=== PATIENT | female | born 1980 | race Caucasian/White ===

== ENCOUNTER 2017-09-09 14:41 | Outpatient (CLI) | payer OTHER | END 2017-09-09 14:42 | disposition home or self-care (01) | LOC: DTY/OP 14:41 | PROVIDERS: ATTEND Family Medicine | DX: E66.3 Overweight (principal); Z68.29 Body mass index [BMI] 29.0-29.9, adult | CPT/HCPCS: 97802 ==

== ENCOUNTER 2018-01-22 10:49 | Outpatient (CLI) | payer OTHER | END 2018-01-22 10:50 | disposition home or self-care (01) | LOC: BICMAMMO 10:49 | PROVIDERS: ATTEND Obstetrics & Gynecology | DX: Z12.31 Encounter for screening mammogram for malignant neoplasm of breast (principal) | CPT/HCPCS: 77063; 77067 ==

== ENCOUNTER 2018-10-09 15:52 | Outpatient (CLI) | payer OTHER ==
[~2018-10-09 15:52] MED LIST: Iopamidol 370 76% 100 ML VIAL ONE; Iopamidol 370 76% 50 ML VIAL FS ONE
--- NOTE | 2018-10-09 17:07 | CT ---
CT abdomen and pelvis with IV and oral contrast HISTORY: Abdominal pain. FINDINGS: Lung bases are clear. Gallbladder surgically absent. A 0.3 cm oval calculus is present with in a nondilated calyx at the superior pole left kidney. Ureters are decompressed. Urinary bladder unremarkable. No evidence of bowel obstruction or inflammation. Appendix has a normal appearance. Phy siologic amount of free fluid in the cul-de-sac. IMPRESSION: Small nonobstructing left renal calculus. No acute abnormalities are demonstrated.
== END 2018-10-09 15:53 | disposition home or self-care (01) ==
LOC: CT 15:52
PROVIDERS: ATTEND Family Medicine
DX: R10.31 Right lower quadrant pain (principal); N20.0 Calculus of kidney
CPT/HCPCS: 36415; 74177; 80053; 85025

== ENCOUNTER 2020-09-28 08:48 | Outpatient (CLI) | payer OTHER | END 2020-09-28 08:49 | disposition home or self-care (01) | LOC: BICRAD 08:48 | PROVIDERS: ATTEND Physician Assistant | DX: M25.511 Pain in right shoulder (principal); M54.2 Cervicalgia; R20.2 Paresthesia of skin | CPT/HCPCS: 72040 ==

== ENCOUNTER 2020-12-19 09:05 | Outpatient (CLI) | payer OTHER | END 2020-12-19 09:06 | disposition home or self-care (01) | LOC: BICMRI 09:05 | PROVIDERS: ATTEND Physician Assistant | DX: M25.511 Pain in right shoulder (principal); M54.2 Cervicalgia; M47.812 Spondylosis without myelopathy or radiculopathy, cervical region | CPT/HCPCS: 72141 ==